=== PATIENT | male | born 1995 | race Caucasian/White ===

== ENCOUNTER 2019-05-07 19:43 | Emergency (ER) | payer BC ==
[~2019-05-07] VITALS: Ht 182.9 cm; Wt 114.8 kg
[~2019-05-07 19:43] MED LIST: FLUO20 PO
[2019-05-07 21:38] LABS: Alanine Aminotransfer (ALT/SGP 28 U/L (12-78); Albumin, Blood 3.7 g/dL (3.4-5.0); Albumin/Globulin Ratio 0.8 (0.8-1.8); Alk Phos 71 U/L (50-136); Anion Gap 8 mmol/L (6-16); Aspartate Aminotrans (AST/SGOT 33 U/L (12-37); Bilirubin, Total 0.6 mg/dL (0.1-1.0); Blood Urea Nitrogen 12 mg/dL (8-24); Bun/Creatinine Ratio 11.5 (12.0-20.0); CO2, Blood 21 mmol/L (21-32); Calcium, Blood 8.9 mg/dL (8.5-10.1); Chloride, Blood 108 mmol/L (98-108); Creatinine, Blood 1.04 mg/dL (0.60-1.20); Globulin, Blood 4.9 g/dL (2.2-4.0); Glomerular Filtration Rate >60 (60-); Glucose, Blood 91 mg/dL (70-99); Potassium, Blood 3.9 mmol/L (3.5-5.5); Sodium, Blood 137 mmol/L (136-145); Total Protein, Blood 8.6 g/dL (6.4-8.2)
[2019-05-07 22:11] LABS: BASOPHILS ABSOLUTE AUTO 0.01 K/mm3 (0.00-0.23); BASOPHILS PERCENT AUTO 0 % (0-2); EOSINOPHILS ABSOLUTE AUTO 0.06 K/mm3 (0.00-0.68); EOSINOPHILS PERCENT AUTO 1 % (0-6); Hematocrit 43.9 % (37.0-53.0); Hemoglobin 15.1 g/dL (13.5-17.5); IMMATURE GRAN ABSOLUTE AUTO 0.04 K/mm3 (0.00-0.10); IMMATURE GRAN PERCENT AUTO 0 % (0-1); LYMPHOCYTES ABSOLUTE AUTO 1.72 K/mm3 (0.84-5.20); LYMPHOCYTES PERCENT AUTO 18 % (21-46); MONOCYTES ABSOLUTE AUTO 0.56 K/mm3 (0.16-1.47); MONOCYTES PERCENT AUTO 6 % (4-13); Mean Corpuscular HGB 30.6 pg (26.0-34.0); Mean Corpuscular HGB Conc 34.4 g/dL (31.5-36.5); Mean Corpuscular Volume 89 fL (80-100); Mean Platelet Volume 11.3 fL (9.1-12.4); NEUTROPHILS ABSOLUTE AUTO 6.96 K/mm3 (1.96-9.15); NEUTROPHILS PERCENT AUTO 75 % (41-73); Platelet Count 286 K/mm3 (150-400); RDW Coefficient Variation 11.8 % (11.7-14.2); Red Blood Cell Count 4.94 M/mm3 (4.30-5.90); White Blood Cell Count 9.35 K/mm3 (4.00-11.30)
[2019-05-07] MEDS ORDERED: CODEINE-GUAIFE120 ML PO (22:11)
[2019-05-07] MEDS ORDERED: ALBU90OI (22:12)
[2019-05-07] MEDS ORDERED: BENZ100A PO (22:12)
[2019-05-08] MEDS ORDERED: Prednisone20 MG PO (00:35)
== END 2019-05-08 00:55 | disposition home or self-care (01) ==
LOC: ER 19:43
PROVIDERS: Emergency Medicine
DX: J20.9 Acute bronchitis, unspecified (principal); R00.0 Tachycardia, unspecified; Z91.048 Other nonmedicinal substance allergy status; Z79.899 Other long term (current) drug therapy
CPT/HCPCS: 71046; 80053; 85025; 94640; 96361; 96374; 99284-25; A9270; J1885; J7030; J7512

== ENCOUNTER 2019-08-09 03:28 | Emergency (ER) | payer BC ==
[~2019-08-09] VITALS: Ht 182.9 cm; Wt 113.4 kg
[~2019-08-09 03:28] MED LIST changes: +ALBU90OI; +BENZ100A PO; +CODEINE-GUAIFE120 ML PO; +Prednisone20 MG PO
[2019-08-09] MEDS ORDERED: CYCL10 PO (05:57)
[2019-08-09] MEDS ORDERED: Prednisone20 MG PO (05:57)
== END 2019-08-09 06:08 | disposition home or self-care (01) ==
LOC: ER 03:28
DX: M54.5 Low back pain (principal)
CPT/HCPCS: 96372; 99283-25; A9270; A9270-GY; J1170; J1885; J7512